=== PATIENT | male | born 1955 | race Hispanic/Latino ===

== ENCOUNTER 2018-11-01 15:11 | Emergency (ER) | payer MEDICARE, OTHER ==
[2018-11-01] MEDS ORDERED: TETRACAINE 0.5% OU ONE (16:20)
[2018-11-01] MEDS ORDERED: FUL-GLO OP ONE ×2 (16:20→16:28)
[2018-11-01] MEDS ORDERED: TETRACAINE 0.5% ONE (16:28)
--- NOTE | 2018-11-01 16:28 | Emergency Department Report ---
HPI - General Chief Complaint: Eye Problems Time Seen by Provider: 11/01/18 16:13 - HPI HPI: Room 5 The patient is 62-year-old male presenting with chief complaint of inability to remove contact lenses. The patient is currently at [facility] under a 2013. The patient was sent to the ED for further evaluation. The patient states the extended wear contacts have been in for approximately 1.5 weeks. Patient states she lacks a dexterity to remove them. The patient states he has some discomfort/irritation in the left eye. Location: Left eye, see above Duration: [See above] Quality: [See above] Severity: Moderate Modifying factors: [see above] Context: [see above] Mode of transportation: [not driving] ED Past Medical Hx - Past Medical History Previous Medical History?: Yes Hx Hypertension: Yes Additional medical history: bipolar. alcohol abuse - Surgical History Past Surgical History?: Yes Additional Surgical History: multiple hand surgeries. internal fixation - Family History Family history: no significant - Social History Smoking Status: Never Smoker Substance Use Type: Alcohol - Medications Home Medications: Home Medications Medication Instructions Recorded Confirmed Last Taken Type Mineral Oil/Petrolatum,White 0.25 inch OU QID #3.5 gm 11/01/18 Unknown Rx [Artificial Tears Eye Ointment] ED Review of Systems ROS: Stated complaint: L EYE PAIN/CONTACT STUCK Other details as noted in HPI Eyes: eye pain Physical Exam - Physical Exam Vital Signs: Vital Signs 11/01/18 11/01/18 15:50 16:18 Temperature 98.3 F Pulse Rate 87 90 Respiratory 18 16 Rate Blood Pressure 123/88 121/96 [Left] O2 Sat by Pulse 97 97 Oximetry Physical Exam: GENERAL: The patient is well-developed well-nourished male lying on stretcher not appearing to be in acute distress. [] HEENT: Normocephalic. Atraumatic. Extraocular motions are intact. Both eyes anesthetized with tetracaine and stained with fluorescein. No contact lens has been highlighted however patient will not follow commands and look inferiorly or superiorly despite repeated attempts NECK: Trachea midline CHEST/LUNGS: There is no respiratory distress noted. SKIN: There is no rash. There is no edema. There is no diaphoresis. NEURO: The patient is awake, alert, and oriented. The patient has normal speech MUSCULOSKELETAL: There is no evidence of acute injury. ED Course Vital Signs 11/01/18 11/01/18 15:50 16:18 Temperature 98.3 F Pulse Rate 87 90 Respiratory 18 16 Rate Blood Pressure 123/88 121/96 [Left] O2 Sat by Pulse 97 97 Oximetry ED Medical Decision Making - Differential Diagnosis contact lens Critical care attestation.: If time is entered above; I have spent that time in minutes in the direct care of this critically ill patient, excluding procedure time. ED Disposition Clinical Impression: Contact lens stuck Disposition: [id number] PSY HOSP/PSY UNIT Is pt being admited?: No Does the pt Need Aspirin: No Condition: Stable Additional Instructions: Return to the emergency department immediately should you develop worsening symptoms, fever, inability to tolerate food or liquid or any other concerns. Prescriptions: Mineral Oil/Petrolatum,White [Artificial Tears Eye Ointment] 0.25 inch OU QID #3.5 gm Referrals: BROOKE ARELLANO MD [Staff Physician] - 11/04/18 (Dr. Arellano is an collections analyst please follow up with him for further evaluation) Time of Disposition: 17:11
[2018-11-01 17:48] VITALS: BP 133/85
== END 2018-11-01 19:04 ==
LOC: ED 15:11
DX: T85.898A Other specified complication of other internal prosthetic devices, implants and grafts, initial encounter (principal); I10 Essential (primary) hypertension; F31.9 Bipolar disorder, unspecified; Y92.89 Other specified places as the place of occurrence of the external cause